=== PATIENT | male | born 1965 ===

== ENCOUNTER 2021-03-22 16:22 | Emergency (ER) | payer SELFPAY ==
[~2021-03-22] VITALS: Ht 188 cm; Wt 120.2 kg
== END 2021-03-22 19:35 | disposition home or self-care (01) ==
LOC: ER1 16:22
DX: Z23 Encounter for immunization (principal); U07.1 COVID-19; I10 Essential (primary) hypertension; E78.5 Hyperlipidemia, unspecified
CPT/HCPCS: 99284; M0243